=== PATIENT | male | born 1965 | race Caucasian/White ===

== ENCOUNTER 2019-01-12 14:37 | Outpatient (CLI) | payer BC ==
--- NOTE | 2019-01-12 15:02 | ULT ---
Exam: Bilateral renal ultrasound HISTORY: Microhematuria COMPARISON: None FINDINGS: Right kidney: Normal cortical echotexture. No hydronephrosis. Right kidney measurements: 6.4 x 12.1 x 5.4 cm. Left kidney: Normal cortical echotexture. No hydronephrosis Left kidney measurements 4.6 x 13.3 x 7.6 cm. Urinary bladder: Normal mucosa. IMPRESSION: No hydronephrosis.
== END 2019-01-12 14:38 | disposition home or self-care (01) ==
LOC: BICULT 14:37
PROVIDERS: ATTEND Family Medicine
DX: R31.29 Other microscopic hematuria (principal)
CPT/HCPCS: 76770

== ENCOUNTER 2019-08-25 18:00 | Outpatient (CLI) | payer BC | END 2019-08-25 18:01 | disposition home or self-care (01) | LOC: SLEEPLAB 18:00 | PROVIDERS: ATTEND Internal Medicine Critical Care Medicine | DX: G47.33 Obstructive sleep apnea (adult) (pediatric) (principal); R53.83 Other fatigue; R06.83 Snoring; I10 Essential (primary) hypertension | CPT/HCPCS: 95801 ==

== ENCOUNTER 2022-04-09 10:09 | Outpatient (CLI) | payer OTHER | END 2022-04-09 10:10 | disposition home or self-care (01) | LOC: BICCT 10:09 | PROVIDERS: ATTEND Internal Medicine Cardiovascular Disease | DX: Z13.6 Encounter for screening for cardiovascular disorders (principal); I25.10 Atherosclerotic heart disease of native coronary artery without angina pectoris | CPT/HCPCS: 75571 ==